=== PATIENT | female | born 1945 | race Caucasian/White ===

== ENCOUNTER 2017-09-01 09:49 | Emergency (ER) | payer OTHER ==
[~2017-09-01 09:49] MED LIST: CALCIUM 500 +1 EAC5 PO; CRESTOR5 M1 PO; FLONASE ALLERG9.9 ML NAS; PRESERVISION A1 EACH PO; RESTASIS1 EACH OPH
--- NOTE | 2017-09-01 10:51 | RADIOLOGY REPORT ---
EXAMINATION: XR LUMBOSACRAL SPINE CLINICAL INFORMATION: Pain with radiation to lower back. Rule out spinal fracture. COMPARISON: CT dated 07/27/2016 TECHNIQUE: 4 views of the lumbosacral spine were obtained. FINDINGS: There is moderate degenerative disc disease at L4-L5 which is characterized by loss of intervertebral disc height, endplate osteophytes, and endplate sclerosis. More minimal degenerative disc disease present at the other levels. There is minimal left convexity centered at L4-L5 and compensatory right convexity at L1-L2. Bones are osteopenic. Vertebral body heights are normal. No acute fractures. 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 More mild to moderate arthritis is present in the pubic symphysis. Anastomotic chain rayo are present in the central pelvis. Closed technique clips are noted in the right upper quadrant. No acute soft tissue findings. IMPRESSION: 1. Moderate degenerative disc disease at L4-L5 minimal degenerative disc disease in the remainder of the lumbar spine. 2. No acute fractures. 3. Osteopenia
--- NOTE | 2017-09-01 11:05 | ED NECK/BACK PAIN COMPLAINT ---
History of Present Illness General Chief Complaint: Low Back Pain/Injury Stated Complaint: LOWER BACK PAIN X 3 DAYS Source: patient Exam Limitations: no limitations Vital Signs & Intake/Output Vital Signs & Intake/Output f Allergies Coded Allergies: atorvastatin (UNKNOWN 12/19/15) codeine (UNKNOWN 12/19/15) pravastatin (UNKNOWN 12/19/15) Reconcile Medications Calcium Carbonate/Vitamin D3 (Calcium 500 + D Tablet) 1 EACH TABLET 1 TAB PO BID SUPPLEMENT (Reported) Cyclosporine (Restasis) 1 EACH DROPERETTE 1 GTT OPH BID EYE (Reported) Fluticasone Propionate (Flonase Allergy Relief) 9.9 ML SPRAY.SUSP 1 SPRAY REAL ALLERGIES (Reported) Naproxen 375 MG TABLET 1 TAB PO BID PRN PAIN with food Rosuvastatin Calcium (Crestor) 5 MG TABLET 1 TAB PO DAILY CHOLESTEROL ( Reported) Tramadol HCl 50 MG TABLET 1 TAB PO QPM PRN PAIN Vit A/Vit C/Vit E/Zinc/Copper (Preservision Areds Tablet) 1 EACH TABLET 1 TAB PO BID EYE (Reported) Triage Note: 72F REPORTS LOW BACK PAIN SINCE WEDNESDAY, DENIES KNOWN MECHANISM OF INJURY. PAIN IS TRANSVERSE LUMBOSACRAL AND AT TIMES RADIATES INTO BUTTOCKS/HIPS. PAIN WORSE WHEN LIFTING LEGS. HAS USED HEATING PADS WITH NO RELIEF. DENIES SYMPTOMS. 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 ALSO REPORTS BLADDER INFECTION A FEW WEEKS AGO. DENIES LOSS OF B/B Triage Nurses Notes Reviewed? yes Onset: Gradual Duration: getting worse Timing: recent history Quality/Severity: severe Location: paraspinous muscles HPI: Patient is a 72-year-old female with a remote history of discectomy performed over 20 years ago who presents emergent with a four-day history of gradual onset of generalized low back pain. Patient states that ambulation and long periods of standing makes worse sitting makes better Tylenol makes better patient denies any mechanism or injury or trauma or increased physical activity. Patient states that at rest she has no pain denies any abdominal pain hematuria dysuria fever chills extremity paresthesia or weakness or pain or bowel bladder incontinence. (Anette MATTHEW,[place]) Past History Travel History Traveled to [place] past 21 day No Medical History Any Pertinent Medical History? see below for history Neurological: NONE Cardiovascular: hyperlipidemia Gastrointestinal: abdominal fistula Surgical History Surgical History: ileostomy Psychosocial History Who do you live with Spouse Services at Home None What is your primary language Sen[place]alese Tobacco Use: Never used Family History Hx Contributory? No ([place] Garcia) Review of Systems Review of Systems Constitutional: Reports: no symptoms. Eyes: Reports: no symptoms. Ears, Nose, Throat, Mouth: Reports: no symptoms. Respiratory: Reports: no symptoms. Cardiovascular: Reports: no symptoms. Gastrointestinal/Abdominal: Reports: no symptoms. Musculoskeletal: Reports: see HPI, back pain. Skin: Reports: no symptoms. Neurological/Psychological: Reports: no symptoms. All Other Systems: Reviewed and Negative (Ky Garcia) Physical Exam Physical Exam General Appearance: no apparent distress, alert, comfortable Head: atraumatic Eyes: Bilateral: normal appearance. Ears, Nose, Throat, Mouth: moist mucous membrane Neck: normal inspection Respiratory: no respiratory distress Gastrointestinal: normal bowel sounds, soft, non-tender Neurologic/Psych: no motor/sensory deficits, awake, alert, oriented x 3, normal gait Skin: intact, normal color, warm/dry Comments: Lumbar spine normal inspection generalized point tenderness noted decreased active range of motion noted Extremities, bilateral lower extremities. Myotomes dermatomes DTRs intact Core Measures CVA/TIA Diagnosis: No (Ky Garcia) Progress Differential Diagnosis: AAA, aortic dissection, C spine injury, carotid dissection, cauda equina syn, herniated disc, myofascial strain, pyelo/UTI, sciatica, spinal cord inj, thoracic outlet syn, T/L spine injury, ureterolithiasis Plan of Care: Differential diagnosis include discitis spinal abscess Patient was neurovascular intact to lower extremities no concerns of cuada equina syndrome Patient will be treated for concerns of low back strain Diagnostic Imaging: Viewed by Me: Radiology Read. Radiology Impression: no acute abnormality Comments: PATIENT: SHANKAR MACK PRESENT AGE: 72 PATIENT ACCOUNT NO: [id number] : 43 LOCATION: [facility], [place] ORDERING PHYSICIAN: Batsheva MATTHEW SERVICE DATE: 09/01/17 EXAM TYPE: RAD - XRY-LUMBOSACRAL SPINE 4 VIEWS EXAMINATION: XR LUMBOSACRAL SPINE CLINICAL INFORMATION: Pain with radiation to lower back. Rule out spinal fracture. COMPARISON: CT dated 07/27/2016 TECHNIQUE: 4 views of the lumbosacral spine were obtained. FINDINGS: There is moderate degenerative disc disease at L4-L5 which is characterized by loss of intervertebral disc height, endplate osteophytes, and endplate sclerosis. More minimal degenerative disc disease present at the other levels. There is minimal left convexity centered at L4-L5 and compensatory right convexity at L1-L2. Bones are osteopenic. Vertebral body heights are normal. No acute fractures. 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 More mild to moderate arthritis is present in the pubic symphysis. Anastomotic chain rayo are present in the central pelvis. Closed technique clips are noted in the right upper quadrant. No acute soft tissue findings. IMPRESSION: 1. Moderate degenerative disc disease at L4-L5 minimal degenerative disc disease in the remainder of the lumbar spine. 2. No acute fractures. 3. Osteopenia DICTATED BY: Hero Pascual MD DATE/TIME DICTATED:09/01/171044 DECORATOR STORE:[facility] ([place] Garcia) Departure Departure Disposition: HOME OR SELF CARE Condition: Stable Clinical Impression Primary Impression: Low back pain Referrals: Javy Miller MD (PCP/Family) Additional Instructions: As discussed begin icing the area directly 20 minutes every 2 hours begin the prescription of Naprosyn for pain and tramadol for breakthrough pain relief. Prescription is waiting at [facility]. If no better in 2 days follow -up with your doctor. If symptoms worsen or if you develop new concerning symptom return to emergency room Departure Forms: Customer Survey General Discharge Information Prescriptions: Current Visit Scripts Naproxen 1 TAB PO BID PRN PAIN #10 TAB with food Tramadol HCl 1 TAB PO QPM PRN PAIN #5 TAB (Ky Garcia) PA/LIME FILTER OPERATOR Co-Sign Statement Statement: ED Attending supervision documentation- [] I saw and evaluated the patient. I have also reviewed all the pertinent lab results and diagnostic results. I agree with the findings and the plan of care as documented in the PA's/LIME FILTER OPERATOR's documentation. [x] I have reviewed the ED Record and agree with the PA's/LIME FILTER OPERATOR's documentation. [] Additions or exceptions (if any) to the PAs/LIME FILTER OPERATOR's note and plan are summarized below: [] (Dajuan Melendez DO)
[2017-09-01] MEDS ORDERED: NAPROXEN375 M2 PO (11:50)
[2017-09-01] MEDS ORDERED: TRAMADOL HCL50 M1 PO (11:50)
[2017-09-01 12:03] VITALS: BP 156/86
== END 2017-09-01 12:03 ==
LOC: ERH 09:49
DX: M54.5 Low back pain (principal)
CPT/HCPCS: 72110